=== PATIENT | female | born 1995 ===

== ENCOUNTER 2024-12-29 06:17 | Day surgery (SDC) | payer OTHER, SELFPAY | END 2024-12-29 08:34 | disposition home or self-care (01) | LOC: GI 06:17 | PROVIDERS: ATTENDING PHYSICIAN Internal Medicine Gastroenterology | DX: K92.1 Melena (principal); K64.9 Unspecified hemorrhoids; Z80.0 Family history of malignant neoplasm of digestive organs; Z83.719 Family history of colon polyps, unspecified | CPT/HCPCS: 45378 ==